=== PATIENT | female | born 1950 | race African-American/Black ===

== ENCOUNTER 2017-08-01 10:33 | Emergency (ER) | payer OTHER ==
[~2017-08-01] VITALS: Ht 157.5 cm; Wt 57.6 kg
[2017-08-01] MEDS ORDERED: TYLENOL EXTRA500 MG PO (11:16)
[2017-08-01] MEDS ORDERED: ARTIFICIAL TEAR15 M2 OPHTHALMIC (11:17)
[2017-08-01] MEDS ORDERED: TUMS PO (11:18)
[2017-08-01] MEDS ORDERED: MEGA BIOTIN10000 MCG PO (11:18)
[2017-08-01] MEDS ORDERED: CARDIZEM CD240 MG PO (11:19)
[2017-08-01] MEDS ORDERED: VITAMIN D3400 UNIT PO (11:19)
[2017-08-01] MEDS ORDERED: VALIUM5 MG PO (11:19)
[2017-08-01] MEDS ORDERED: COLACE 100 MG100 MG PO (11:20)
[2017-08-01] MEDS ORDERED: ENOXAPARIN80 MG/0.1 SUBQ ×2 (11:21)
[2017-08-01] MEDS ORDERED: ERYTHROMYCIN E3.5 G3 OPHTHALMIC (11:22)
[2017-08-01] MEDS ORDERED: FOLIC ACID1 MG PO (11:22)
[2017-08-01] MEDS ORDERED: FEOSOL325 M1 PO (11:22)
[2017-08-01] MEDS ORDERED: HYDRALAZINE 2525 MG PO (11:23)
[2017-08-01] MEDS ORDERED: LASIX 40 MG TAB40 M2 PO (11:23)
[2017-08-01] MEDS ORDERED: DILAUDID 2 MG TA2 MG PO (11:24)
[2017-08-01] MEDS ORDERED: LIDODERM1 EACH TRANSDERM (11:25)
[2017-08-01] MEDS ORDERED: PROBIOTIC1 EAC1 PO (11:25)
[2017-08-01] MEDS ORDERED: LIDOCAINE-PRILO30 GM TOP (11:27)
[2017-08-01] MEDS ORDERED: LOPERAMIDE 2 MG2 M1 PO (11:27)
[2017-08-01] MEDS ORDERED: TOPROL XL25 MG PO (11:28)
[2017-08-01] MEDS ORDERED: ANTIVERT25 MG PO (11:28)
[2017-08-01] MEDS ORDERED: MELATONIN5 M1 PO (11:28)
[2017-08-01] MEDS ORDERED: OCUFLOX5 ML OPHTHALMIC (11:29)
[2017-08-01] MEDS ORDERED: OMEPRAZOLE20 MG PO (11:29)
[2017-08-01] MEDS ORDERED: PREDNISONE 20 M20 MG PO (11:30)
[2017-08-01] MEDS ORDERED: ONDANSETRON HCL4 M2 PO (11:30)
[2017-08-01] MEDS ORDERED: TACROLIMUS0.5 MG PO (11:31)
[2017-08-01] MEDS ORDERED: GAS RELIEF80 MG PO (11:31)
[2017-08-01] MEDS ORDERED: TRAMADOL 50 MG50 MG PO (11:32)
[2017-08-01] MEDS ORDERED: VALGANCICLOVIR450 MG PO (11:32)
[2017-08-01] MEDS ORDERED: EFFEXOR XR37.5 MG PO (11:33)
[2017-08-01] MEDS ORDERED: UNICOMPLEX M TA1 TA1 PO (11:33)
[2017-08-01] MEDS ORDERED: COUMADIN 3 MG TA3 M1 PO ×2 (11:33)
[2017-08-01 12:23] LABS: HEMATOCRIT 29.7 % (37.0-47.0); MCHC 33.7 g/dL (28.0-37.0); MCV 100.8 fL (80.0-100.0); RBC 2.94 mil/uL (4.20-5.00); RDW 19.1 % (10.5-14.5); WBC 10.9 thou/uL (4.0-11.0)
[2017-08-01 12:38] LABS: APTT 34.7 Seconds (24.5-32.8); INR 1.2; PROTIME 12.6 Seconds (9.3-11.4)
[2017-08-01 15:57] VITALS: BP 177/107
== END 2017-08-01 16:22 | disposition home or self-care (01) ==
LOC: ER 10:33
PROVIDERS: Emergency Medicine
DX: R04.0 Epistaxis (principal); I12.9 Hypertensive chronic kidney disease with stage 1 through stage 4 chronic kidney disease, or unspecified chronic kidney disease; N18.9 Chronic kidney disease, unspecified; I48.91 Unspecified atrial fibrillation; E78.00 Pure hypercholesterolemia, unspecified; Z99.2 Dependence on renal dialysis; Z88.0 Allergy status to penicillin; Z88.2 Allergy status to sulfonamides; Z88.5 Allergy status to narcotic agent; Z88.1 Allergy status to other antibiotic agents

== ENCOUNTER 2017-08-02 07:59 | Inpatient (IN) | payer OTHER ==
[~2017-08-02] VITALS: Ht 157.5 cm; Wt 57.6 kg
[~2017-08-02 07:59] MED LIST: ANTIVERT25 MG PO; ARTIFICIAL TEAR15 M2 OPHTHALMIC; CARDIZEM CD240 MG PO; COLACE 100 MG100 MG PO; COUMADIN 3 MG TA3 M1 PO; DILAUDID 2 MG TA2 MG PO; EFFEXOR XR37.5 MG PO; ENOXAPARIN80 MG/0.1 SUBQ; ERYTHROMYCIN E3.5 G3 OPHTHALMIC; FEOSOL325 M1 PO; FOLIC ACID1 MG PO; GAS RELIEF80 MG PO; HYDRALAZINE 2525 MG PO; LASIX 40 MG TAB40 M2 PO; LIDOCAINE-PRILO30 GM TOP; LIDODERM1 EACH TRANSDERM; LOPERAMIDE 2 MG2 M1 PO; MEGA BIOTIN10000 MCG PO; MELATONIN5 M1 PO; OCUFLOX5 ML OPHTHALMIC; OMEPRAZOLE20 MG PO; ONDANSETRON HCL4 M2 PO; PREDNISONE 20 M20 MG PO; PROBIOTIC1 EAC1 PO; TACROLIMUS0.5 MG PO; TOPROL XL25 MG PO; TRAMADOL 50 MG50 MG PO; TUMS PO; TYLENOL EXTRA500 MG PO; UNICOMPLEX M TA1 TA1 PO; VALGANCICLOVIR450 MG PO; VALIUM5 MG PO; VITAMIN D3400 UNIT PO
[2017-08-02 08:07] VITALS: BP 185/93
[2017-08-02 09:12] LABS: HEMATOCRIT 26.9 % (37.0-47.0); HEMOGLOBIN 8.9 gm/dL (12.0-15.0); MCH 33.7 pg (26.0-34.0); MCHC 33.1 g/dL (28.0-37.0); MCV 101.7 fL (80.0-100.0); RBC 2.64 mil/uL (4.20-5.00); RDW 18.6 % (10.5-14.5); WBC 18.7 thou/uL (4.0-11.0)
[2017-08-02 09:22] LABS: CALCIUM 9.3 mg/dL (8.5-10.1); CREATININE 5.1 mg/dL (0.6-1.0)
[2017-08-02 09:25] LABS: APTT 27.3 Seconds (24.5-32.8); INR 1.2; PROTIME 12.4 Seconds (9.3-11.4)
[2017-08-02 11:33] VITALS: BP 184/103
[2017-08-02 13:25] VITALS: BP 154/85
[2017-08-02 20:00] VITALS: BP 159/88
[2017-08-02 21:56] VITALS: BP 190/102
== END 2017-08-02 22:30 | disposition left against medical advice (07) | DRG 151 ==
LOC: ER 07:59 → EROBS 10:13 → 4E 13:26
PROVIDERS: Emergency Medicine
PROC: 2Y41X5Z Packing of Nasal Region using Packing Material (ICD-10-PCS; principal; 2017-08-02)
DX: R04.0 Epistaxis (principal); D62 Acute posthemorrhagic anemia; D68.61 Antiphospholipid syndrome; Z94.0 Kidney transplant status; Q89.8 Other specified congenital malformations; I48.91 Unspecified atrial fibrillation; N18.9 Chronic kidney disease, unspecified; H35.30 Unspecified macular degeneration; E78.00 Pure hypercholesterolemia, unspecified; Z53.21 Procedure and treatment not carried out due to patient leaving prior to being seen by health care provider; D72.829 Elevated white blood cell count, unspecified; M81.0 Age-related osteoporosis without current pathological fracture; I12.9 Hypertensive chronic kidney disease with stage 1 through stage 4 chronic kidney disease, or unspecified chronic kidney disease; M47.9 Spondylosis, unspecified; Z86.718 Personal history of other venous thrombosis and embolism; Z88.0 Allergy status to penicillin; Z88.2 Allergy status to sulfonamides; Z88.6 Allergy status to analgesic agent; Z88.1 Allergy status to other antibiotic agents; Z91.041 Radiographic dye allergy status; Z79.899 Other long term (current) drug therapy; Z79.01 Long term (current) use of anticoagulants
CPT/HCPCS: 10183

== ENCOUNTER 2018-01-13 03:14 | Inpatient (IN) | payer OTHER ==
[~2018-01-13] VITALS: Ht 157.5 cm; Wt 56.7 kg
[2018-01-13] VITALS (9 sets, daily range): BP systolic 131–169; BP diastolic 62–89
--- NOTE | ~2018-01-13 | EKG ---
[address] [place] [address] ELECTROCARDIOGRAM REPORT Name: ILEANA ARDON Room #: 201-P [facility] IN M.R.#: [id number] Admission: 01/13/18 Attend Phys: Rusty Adkins MD Discharge: Date of : 50 Report #: [id number] THIS REPORT FOR: //name// [facility] ED Test Date: 2018-01-13 Test Time: 03:18:29 Pat Name: ILEANA ARDON Department: Room: [facility] Gender: F Check Services Clerk: SUSU : 1950 Requested By: Artem Mccain Order Number: [id number] MD: Samir Johnson Measurements Intervals [place] Rate: 89 P: 80 MN: 184 QRS: 9 QRSD: 88 T: 62 QT: 379 QTc: 462 Interpretive Statements Sinus rhythm Poor R wave progression No previous ECG available for comparison Electronically Signed On 01-13-2018 8:48:21 CDT by Samir Johnson [email or web address] <ELECTRONICALLY SIGNED> By: Samir Johnson MD, [facility] 01/13/18 0848 0318 0318 Samir Johnson MD, FACC /EPI
--- NOTE | ~2018-01-13 | 2DMMODE ---
[facility] [address] [place] [address] 2 D/M-MODE ECHOCARDIOGRAM Name: ILEANA ARDON Room #: 201-P [facility] IN ..#: [id number] Admission: 01/13/18 Attend Phys: Rusty Adkins, Discharge: Date of : 50 Date of Service: 01/14/18 1250 Report #: [id number] THIS REPORT FOR: //name// APPROVED REPORT Study performed: 01/14/2018 10:27:26 EXAM: Comprehensive 2D, Doppler, and color-flow Echocardiogram Patient Location: Bedside Room #: 201 Status: routine BSA: 1.64 HR: 93 bpm BP: 147/71 mmHg Rhythm: NSR Other Information Study Quality: Adequate Indications Pulmonary edema. Hx: CHF, Afib, HTN, HLP, ESRD. 2D Dimensions RVDd: 32.56 mm LVEF(%): 51.65 (>50%) IVSd: 14.12 (7-11mm) LVOT Diam: 19.87 (18-24mm) LVDd: 43.24 mm PWd: 13.61 (7-11mm) Ascending Ao: 37.72 (22-36mm) LVDs: 31.91 (25-40mm) Aortic Root: 32.56 mm Buenrostro's LVEF: 51.65 % Volumes Left Atrial Volume (Systole) Single Plane 4CH: 49.92 mL Single Plane 2CH: 59.53 mL LA ESV Index: 35.00 mL/m2 Aortic Valve AoV Peak Arnel.: 1.70 m/s AO Peak Gr.: 11.60 mmHg LVOT Max P.52 mmHg LVOT Max V: 1.18 m/s ROLAN Vmax: 2.14 cm2 AI Vmax: 4.57 m/s AI Beauregard: 3.27 m/s2 AI PHT: 405.70 ms [facility] [place] [address] 2 D/M-MODE ECHOCARDIOGRAM Name: ILEANA ARDON Room #: 201-P [facility] IN ..#: [id number] Admission: 01/13/18 Attend Phys: Rusty Adkins, Discharge: Date of : 50 Date of Service: 01/14/18 1250 Report #: [id number] Mitral Valve IVRT: 110.73 ms Pulmonary Valve PV Peak Arnel.: 1.06 m/s PV Peak Gr.: 4.47 mmHg Pulmonary Vein P Vein S: 0.37 m/s P Vein D: 0.55 m/s P Vein S/D Ratio: 0.67 Tricuspid Valve TR Peak Arnel.: 2.21 m/s RAP Estimate: 5.00 mmHg TR Peak Gr.: 19.59 mmHg PA Pressure: 25.00 mmHg Left Ventricle The left ventricle is normal size. There is normal LV segmental wall motion. Mild to moderate concentric left ventricular hypertrophy. Left ventricular systolic function is normal. LVEF is 55%. Moderate diastolic dysfunction is present (pseudonormal filling). Right Ventricle The right ventricle is normal size. The right ventricular systolic function is normal. Atria Left atrium is mildly dilated. The right atrium size is normal. Aortic Valve Aortic valve is calcified. Mild to moderate aortic regurgitation. There is no aortic valvular stenosis. Mitral Valve Mitral valve leaflets are thickened. Heavily calcified annulus. Moderate mitral regurgitation. No evidence of mitral valve stenosis. Tricuspid Valve The tricuspid valve is normal in structure. Trace tricuspid regurgitation. Estimated PAP is 25mmHg. Pulmonic Valve Pulmonic valve is grossly normal in structure. Trace pulmonic regurgitation. [facility] [address] [place] [address] 2 D/M-MODE ECHOCARDIOGRAM Name: ARDONILEANA Room #: 201-P [facility] IN ..#: [id number] Admission: 01/13/18 Attend Phys: Rusty Adkins, Discharge: Date of : 50 Date of Service: 01/14/18 1250 Report #: [id number] Great Vessels The aortic root is normal in size. Ascending aorta measures at the upper limits of normal. IVC is normal in size and collapses >50% with inspiration. Pericardium There is no pericardial effusion. Right and left pleural effusions noted. <Conclusion> The left ventricle is normal size. Mild to moderate concentric left ventricular hypertrophy. Left ventricular systolic function is normal. Moderate diastolic dysfunction is present (pseudonormal filling). The right ventricle is normal size. Left atrium is mildly dilated. Mild to moderate aortic regurgitation. Mitral valve leaflets are thickened. Heavily calcified annulus. Moderate mitral regurgitation. Trace tricuspid regurgitation. Estimated PAP is 25mmHg. There is no pericardial effusion. <ELECTRONICALLY SIGNED> By: William Lara MD 01/14/180 49 49 William Lara MD /INF
--- NOTE | ~2018-01-13 | HC ---
[facility] [place] [address] CONSULTATION Name: ILEANA ARDON Palmira Room #: 201-P [facility] IN .R.#: [id number] Admission: 01/13/18 Attend Phys: Rusty Adkins MD Discharge: Date of : 50 Report #: [id number] THIS REPORT FOR: //name// CC: Rusty Sunshine REASON FOR CONSULTATION: End-stage renal disease. REASON FOR PRESENTATION: Shortness of breath. 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 The details of the history were obtained from the patient's . He tells me that back in 2009, she was diagnosed to have end-stage renal disease while in [place]. She had history of lupus, DVTs in the past. She was diagnosed to have antiphospholipid and was maintained on chronic anticoagulation. She remained on dialysis up until 2012, she moved to [place]. She had a kidney transplant in 2014; however, this seems to be failing. She is currently maintained on hemodialysis every Saturday, Saturday and Saturday. She sees Dr. Singh and goes to her [facility]. She presented with shortness of breath and was found to be in hypertensive urgency with a blood pressure reading of 160/89, pulmonary edema. She was admitted for further evaluation and management. I am being consulted to manage her end-stage renal disease related issues. Most of the patient's hospitalizations were at . The tells me that she had been in numerous facilities for numerous issues including hypertensive urgency, pulmonary edema, many complications related to her renal transplantation including a recent CMV virus infection. PAST MEDICAL HISTORY: 1. End-stage renal disease, maintained on hemodialysis. 2. Remote history of peritoneal dialysis. 3. Failed kidney transplant. 4. Retinitis pigmentosa. 5. 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 6. AFib. 7. Anemia of chronic disease. 8. Multiple lung nodules. 9. Osteoporosis. 10. DVT. 11. Lupus. 12. Antiphospholipid syndrome. 13. Issues managing her fluid with the dialysis, chronic hypertension complicated by hypovolemia and hypotension. MEDICATIONS: 1. Warfarin. [address] [address] CONSULTATION Name: DUGLASILEANA N Room #: 201-P [facility]..#: [id number] Admission: 01/13/18 Attend Phys: Rusty Adkins MD Discharge: Date of : 50 Report #: [id number] 2. Trazodone. 3. Metoprolol. 4. Imdur. 5. Amlodipine. 6. Valcyte. 7. Tacrolimus. 8. Prednisone. 9. Meclizine. 10. Furosemide. 11. Diltiazem. 12. Diazepam. 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 No drug or alcohol abuse. ALLERGIES: CIPRO, CODEINE, PENICILLIN, SHELLFISH, SULFA, IRON SUCROSE. REVIEW OF SYSTEMS: GENERAL: Significant for weakness. CARDIOVASCULAR: Significant for shortness of breath. PULMONARY: Shortness of breath and cough. GASTROINTESTINAL: Occasional nausea and abdominal pain. MUSCULOSKELETAL: Occasional back pain. SKIN: No rash or ulcerations. HEMATOLOGICAL: No epistaxis. However, she did have one event of profuse bleeding, for which the patient has profuse epistaxis episode, for which the patient had an embolization of one of her nasal vessels. Also significant for DVTs including a recent left upper extremity and left neck DVT. PHYSICAL EXAMINATION: GENERAL: She is asleep this morning. VITAL SIGNS: Temperature 36.3, blood pressure 148/62. HEAD AND NECK: Right-sided port. Left IJ catheter. CHEST: Crackles bilaterally. CARDIOVASCULAR: No rub. Systolic murmur present. ABDOMEN: Soft, nontender. LOWER EXTREMITIES: No edema. LABORATORY DATA: Reviewed. White blood cell count is 12.8. INR pending. Sodium 127, potassium 5.4. Liver enzymes are within normal. Chest x-ray reviewed, pulmonary edema present. ASSESSMENT, IMPRESSION AND PLAN: 1. End-stage renal disease. 2. Hyponatremia. 3[place] [address] CONSULTATION Name: ILEANA ARDON Palmira Room #: 201-P ADM IN M.R.#: [id number] Admission: 01/13/18 Attend Phys: Rusty Adkins MD Discharge: Date of : 50 Report #: [id number] 4. Hyperkalemia. 5. Pulmonary edema. 6. Failed kidney transplant. 7. Recent cytomegalovirus infection. 8. Atrial fibrillation. 9. 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 10. Antiphospholipid. 11. Recurrent deep venous thrombosis. 12. Retinitis pigmentosa. 13. Hearing loss. 14. Recurrent deep venous thrombosis. 15. This is a very complicated patient. I will aim for the usual hemodialysis with aggressive ultrafiltration given her pulmonary edema, hyponatremia. She will be dialyzing on a low K bath. 16. Resume all of her chronic outpatient medications. 17. Resume anticoagulation. 18. Blood pressure control. 19. Fluid and salt restrictions. 20. Valacyclovir for her recent cytomegalovirus infection. 21. Usual immunosuppression for her kidney transplant. By: 0942 [id number] Zoya Billingsley MD /nt
[2018-01-13] MEDS ORDERED: NORVASC5 MG PO (03:26)
[2018-01-13] MEDS ORDERED: BIOTIN10000 MC1 PO (03:28)
[2018-01-13] MEDS ORDERED: CALCIUM500 M1 PO (03:28)
[2018-01-13] MEDS ORDERED: IMDUR 30 MG TAB30 M1 PO (03:30)
[2018-01-13 03:32] LABS: ABSOLUTE NEUTROPHILS 11.4 thou/uL (1.4-8.2); BASOPHILS 0.1 % (0.0-2.0); EOSINOPHILS 0.7 % (0.0-3.0); HEMATOCRIT 35.2 % (37.0-47.0); HEMOGLOBIN 11.8 gm/dL (12.0-15.0); LYMPHOCYTES 5.8 % (24.0-44.0); MCH 31.4 pg (26.0-34.0); MCHC 33.4 g/dL (28.0-37.0); MONOCYTES 4.5 % (1.0-8.0); PLATELET COUNT 236 thou/uL (150-400); POLYS 88.9 % (36.0-66.0); RBC 3.75 mil/uL (4.20-5.00); RDW 16.7 % (10.5-14.5); WBC 12.8 thou/uL (4.0-11.0)
[2018-01-13] MEDS ORDERED: TOPROL XL100 MG PO (03:34)
[2018-01-13] MEDS ORDERED: SENNA8.6 MG PO (03:36)
[2018-01-13] MEDS ORDERED: SALINE NASAL SP30 ML INH (03:38)
[2018-01-13] MEDS ORDERED: TRAZODONE HCL50 MG PO (03:39)
[2018-01-13 03:40] LABS: ANION GAP 8 mmol/L (7-16); BUN 57 mg/dL (7-18); CALCIUM 9.3 mg/dL (8.5-10.1); CHLORIDE 94 mmol/L (98-107); CO2 25 mmol/L (21-32); CREATININE 6.6 mg/dL (0.6-1.0); GLUCOSE 169 mg/dL (74-106); POTASSIUM 5.4 mmol/L (3.5-5.1); SODIUM 127 mmol/L (136-145)
[2018-01-13] MEDS ORDERED: NEPHPLEX RX TA1 EACH PO (03:40)
[2018-01-13] MEDS ORDERED: JANTOVEN5 MG PO (03:41)
[2018-01-13 03:49] LABS: ALBUMIN 3.2 g/dL (3.4-5.0); SGOT 34 U/L (15-37); SGPT 39 U/L (30-65); TOTAL BILIRUBIN 0.4 mg/dL (<0.1-1.0); TROPONIN-I <0.06 ng/mL (<0.06)
[2018-01-13 09:46] LABS: INR 3.2; PROTIME 30.4 Seconds (9.3-11.4)
[2018-01-14] VITALS (7 sets, daily range): BP systolic 126–147; BP diastolic 59–73
[2018-01-14 06:41] LABS: ABSOLUTE NEUTROPHILS 8.5 thou/uL (1.4-8.2); BASOPHILS 0.1 % (0.0-2.0); HEMATOCRIT 33.4 % (37.0-47.0); MCH 31.1 pg (26.0-34.0); MCHC 32.9 g/dL (28.0-37.0); MCV 94.7 fL (80.0-100.0); MONOCYTES 0.6 % (1.0-8.0); PLATELET COUNT 186 thou/uL (150-400); POLYS 96.3 % (36.0-66.0); RBC 3.52 mil/uL (4.20-5.00); RDW 16.7 % (10.5-14.5); WBC 8.9 thou/uL (4.0-11.0)
[2018-01-14 07:02] LABS: CALCIUM 8.5 mg/dL (8.5-10.1); MAGNESIUM 2.6 mg/dL (1.8-2.4); POTASSIUM 5.6 mmol/L (3.5-5.1)
[2018-01-14 07:03] LABS: CREATININE 4.7 mg/dL (0.6-1.0)
[2018-01-15 00:06] LABS: HEP B SURFACE Ab(ANTI-HBS Non Reactive (()); HEPATITIS B SURFACE AG Negative (Negative)
[2018-01-15 00:22] VITALS: BP 132/71
[2018-01-15 04:46] LABS: INR 5.4
[2018-01-15 04:47] VITALS: BP 140/79
[2018-01-15 09:49] VITALS: BP 168/98
[2018-01-15 11:47] VITALS: BP 148/85
[2018-01-15 15:25] VITALS: BP 148/85
== END 2018-01-15 16:49 | disposition home or self-care (01) | DRG 871 ==
LOC: ER 03:14 → 2N 04:00 → EROBS 04:00 → 2N 04:49 → ENTRNSPT 01-15 16:37 → 2N 01-15 16:49
PROVIDERS: Emergency Medicine; Hospitalist; Nurse Practitioner
PROC: 5A1D70Z Performance of Urinary Filtration, Intermittent, Less than 6 Hours Per Day (ICD-10-PCS; principal; 2018-01-13)
PROC: 5A1D70Z Performance of Urinary Filtration, Intermittent, Less than 6 Hours Per Day (ICD-10-PCS; 2018-01-14)
PROC: 5A1D70Z Performance of Urinary Filtration, Intermittent, Less than 6 Hours Per Day (ICD-10-PCS; 2018-01-15)
DX: A41.9 Sepsis, unspecified organism (principal); J18.9 Pneumonia, unspecified organism; N18.6 End stage renal disease; J96.01 Acute respiratory failure with hypoxia; I13.2 Hypertensive heart and chronic kidney disease with heart failure and with stage 5 chronic kidney disease, or end stage renal disease; D68.61 Antiphospholipid syndrome; E87.1 Hypo-osmolality and hyponatremia; Z94.0 Kidney transplant status; Q89.8 Other specified congenital malformations; M47.9 Spondylosis, unspecified; E11.22 Type 2 diabetes mellitus with diabetic chronic kidney disease; H91.90 Unspecified hearing loss, unspecified ear; I50.9 Heart failure, unspecified; E87.5 Hyperkalemia; H35.52 Pigmentary retinal dystrophy; I16.0 Hypertensive urgency; E78.00 Pure hypercholesterolemia, unspecified; M81.0 Age-related osteoporosis without current pathological fracture; H35.30 Unspecified macular degeneration; M32.9 Systemic lupus erythematosus, unspecified; E78.5 Hyperlipidemia, unspecified; I48.91 Unspecified atrial fibrillation; Z88.2 Allergy status to sulfonamides; Z91.041 Radiographic dye allergy status; Z88.0 Allergy status to penicillin; Z91.013 Allergy to seafood; Z99.2 Dependence on renal dialysis; Z86.718 Personal history of other venous thrombosis and embolism; Z79.899 Other long term (current) drug therapy; Z79.01 Long term (current) use of anticoagulants; Z88.1 Allergy status to other antibiotic agents; Z88.8 Allergy status to other drugs, medicaments and biological substances
CPT/HCPCS: 10081; 32100

== ENCOUNTER 2018-06-26 16:17 | Inpatient (IN) | payer OTHER ==
[~2018-06-26] VITALS: Ht 157.5 cm; Wt 61.6 kg
--- NOTE | ~2018-06-26 | HC ---
[facility] [place] [address] CONSULTATION Name: ARDONILEANA N Room #: 354-P [facility] IN M.R.#: [id number] Admission: 06/26/18 Attend Phys: Joan Ramirez Discharge: Date of : 50 Report #: [id number] THIS REPORT FOR: //name// CC: NO PCP Oscar Dickson REASON FOR CONSULTATION: End-stage renal disease. REASON FOR PRESENTATION: Shortness of breath. HISTORY OF PRESENT ILLNESS: A well-known patient to me from December 2017. She has end-stage renal disease with history of lupus, antiphospholipid syndrome, DVT and potential Marfan syndrome. She is dialyzing in [place] dialysis unit. She had a kidney transplant back in 2014. She also has retinitis pigmentosa. tells me that she dialyzes every Saturday, Saturday and Saturday with an extra session on Saturday to try to control her blood pressure and her volume. She had sudden surges of her blood pressure yesterday. This was associated with shortness of breath. tends to treat her blood pressure with hydralazine and metoprolol. She was in major pulmonary edema when she presented yesterday and we had to dialyze her emergently. I am being consulted to manage her end-stage renal disease related issues. PAST MEDICAL HISTORY: 1. End-stage renal disease. 2. Lupus. 3. Antiphospholipid syndrome. 4. DVTs. 5. Failed kidney transplant. 6. Retinitis pigmentosa. 7. Atrial fibrillation. 8. Anemia. 9. Lung nodules. 10. Hypertension. MEDICATIONS: 1. Coumadin. 2. Metoprolol. 3. Imdur. 4. Tacrolimus. 5. Prednisone. 6. Furosemide. 7. Hydralazine. 8. Diazepam. SOCIAL HISTORY: Lives with her . No drug or alcohol abuse. ALLERGIES: CIPRO, CODEINE, PENICILLIN, SULFA. [facility] [address] [place] [address] CONSULTATION Name: ILEANA ARDON Room #: 354-P [facility] IN [facility].#: [id number] Admission: 06/26/18 Attend Phys: Joan Ramirez Discharge: Date of : 50 Report #: [id number] REVIEW OF SYSTEMS: GENERAL: No fever or chills. CARDIOVASCULAR: No chest pain or palpitation. PULMONARY: No cough or hemoptysis; however, significant shortness of breath. GASTROINTESTINAL: No nausea or vomiting. GENITOURINARY: She has a Dos Santos catheter. PHYSICAL EXAMINATION: GENERAL: She is alert, oriented, in no apparent distress. VITAL SIGNS: Temperature 36.7, blood pressure is 159/95. HEAD AND NECK: No jugular venous distention, no bruit, no thyromegaly. CHEST: Crackles bilaterally. CARDIOVASCULAR: No rub detected. ABDOMEN: Soft, nontender. LOWER EXTREMITIES: No edema. LABORATORY VALUES: Reviewed. Sodium 129, potassium 5.3, BUN 42, creatinine 5.4. Chest x-ray reviewed, consistent with pulmonary edema. Abdominal ultrasound reviewed, no acute abnormality. ASSESSMENT, IMPRESSION AND PLAN: 1. Acute pulmonary edema. 2. End-stage renal disease. 3. Complicated past medical history with history of deep venous thrombosis, phospholipid syndrome, lupus, potential Marfan syndrome. 4. Dialysis was done yesterday. Another session will be done today. I had 30 minutes discussion with the patient regarding the management of hypertension in the dialysis people, fluid and salt restriction. She had major issues with hyponatremia and hyperkalemia suggesting noncompliance with fluid and salt restriction. Unfortunately, the patient's tends to manage her the way he would like. This is complicating her medical care. 5. We will defer the management of her deep venous thrombosis, phospholipids to the admitting team. By: 0911 [id number] Zoya Billingsley MD /nt
[~2018-06-26 16:17] MED LIST changes: +BIOTIN10000 MC1 PO; +CALCIUM500 M1 PO; +IMDUR 30 MG TAB30 M1 PO; +JANTOVEN5 MG PO; +NEPHPLEX RX TA1 EACH PO; +NORVASC5 MG PO; +SALINE NASAL SP30 ML INH; +SENNA8.6 MG PO; +TOPROL XL100 MG PO; +TRAZODONE HCL50 MG PO
[2018-06-26 16:19] VITALS: BP 168/82
--- NOTE | 2018-06-26 16:39 | NUR ---
RT AT BEDSIDE TO OBTAIN ABG
[2018-06-26 16:45] LABS: ABSOLUTE NEUTROPHILS 11.1 thou/uL (1.4-8.2); BASOPHILS 0.3 % (0.0-2.0); EOSINOPHILS 0.1 % (0.0-3.0); HEMATOCRIT 31.2 % (37.0-47.0); HEMOGLOBIN 10.2 gm/dL (12.0-15.0); LYMPHOCYTES 7.1 % (24.0-44.0); MCH 32.4 pg (26.0-34.0); MCHC 32.6 g/dL (28.0-37.0); MCV 99.4 fL (80.0-100.0); MONOCYTES 4.2 % (1.0-8.0); PLATELET COUNT 339 thou/uL (150-400); POLYS 88.3 % (36.0-66.0); RBC 3.14 mil/uL (4.20-5.00); RDW 14.8 % (10.5-14.5); WBC 12.6 thou/uL (4.0-11.0)
[2018-06-26 16:47] LABS: BE(vivo) -0.3 mmol/L (-2 to +3); HCO3 24.5 mmol/L (22.0-26.0); PCO2 40.2 mmHg (35.0-45.0); PO2 89.2 mmHg (80.0-100.0); pH 7.402 (7.360-7.450); sO2 96.8 % (92.0-98.0)
--- NOTE | 2018-06-26 16:48 | NUR ---
PER HE WANTS TO WAIT ON LASIX UNTIL HE SPEAKS TO PROVIDER
[2018-06-26 16:56] LABS: ANION GAP 10 mmol/L (7-16); BUN 42 mg/dL (7-18); CALCIUM 8.8 mg/dL (8.5-10.1); CHLORIDE 93 mmol/L (98-107); CO2 26 mmol/L (21-32); CREATININE 5.4 mg/dL (0.6-1.0); GLUCOSE 239 mg/dL (74-106); POTASSIUM 5.3 mmol/L (3.5-5.1); SODIUM 129 mmol/L (136-145)
[2018-06-26 16:58] LABS: INR 3.3; PROTIME 34.1 Seconds (9.3-11.4)
[2018-06-26 17:05] LABS: ALBUMIN 2.7 g/dL (3.4-5.0); MAGNESIUM 2.5 mg/dL (1.8-2.4); SGOT 25 U/L (15-37); SGPT 23 U/L (30-65); TOTAL BILIRUBIN 0.5 mg/dL (<0.1-1.0); TOTAL PROTEIN 7.1 g/dL (6.4-8.2); TROPONIN-I <0.06 ng/mL (<0.06)
[2018-06-26] MEDS ORDERED: SM VITAMIN B C0.4 MG PO (17:19)
[2018-06-26] MEDS ORDERED: DIPHENHYDRAMINE25 M3 PO (17:21)
[2018-06-26 17:59] LABS: URINE CLARITY CLOUDY; URINE COLOR GREENISH; URINE GLUCOSE-RANDOM* NEGATIVE (Negative); URINE PROTEIN (DIPSTICK) 2+ (Negative); URINE SPECIFIC GRAVITY 1.015 (1.005-1.035)
[2018-06-26 18:00] LABS: URINE BILIRUBIN NEGATIVE (Negative); URINE BLOOD 1+ (Negative); URINE KETONES NEGATIVE (Negative); URINE LEUKOCYTES-REFLEX 3+ (Negative); URINE NITRITE-REFLEX POSITIVE (Negative); URINE UROBILINOGEN 0.2 E.U./dl (0.2-1.0)
[2018-06-26 18:05] LABS: SQUAMOUS 0-3 Few /LPF (0-3); URINE RBC 3-10 Few /HPF (0-2); URINE WBC-REFLEX >25 Many /HPF (0-5)
[2018-06-26 18:06] LABS: BACTERIA-REFLEX >30 Many /HPF (None Seen); CASTS None Seen /LPF (None Seen); CRYSTALS None Seen /LPF (None Seen)
[2018-06-26 18:19] VITALS: BP 141/72
[2018-06-26 19:17] VITALS: BP 157/83
[2018-06-26] MEDS ORDERED: NORVASC5 MG PO (22:48)
[2018-06-26] MEDS ORDERED: ROLAIDS CHEWAB1 EAC1 PO (22:52)
[2018-06-26] MEDS ORDERED: COUMADIN 2 MG TA2 M1 PO (23:00)
--- NOTE | 2018-06-26 23:34 | EKG ---
[address] [address] ELECTROCARDIOGRAM REPORT Name: ILEANA ARDON Room #: 354-P ADM IN M.R.#: [id number] Admission: 06/26/18 Attend Phys: Joan Ramirez Discharge: Date of : 50 Report #: [id number] THIS REPORT FOR: //name// [facility] ED Test Date: 2018-06-26 Test Time: 16:33:31 Pat Name: ILEANA ARDON Department: Room: 354 Gender: F Barrel Planer: : 1950 Requested By: Rajan Christianson Order Number: [id number] MD: Candelario Mcallister Measurements Intervals [place] Rate: 91 P: 34 NV: 166 QRS: -19 QRSD: 82 T: 58 QT: 380 QTc: 468 Interpretive Statements Sinus rhythm Borderline left axis deviation Anteroseptal infarct, age indeterminate Compared to ECG 01/13/2018 03:18:29 Myocardial infarct finding now present Poor R-wave progression no longer present Electronically Signed On 06-26-2018 23:34:15 WATER METER MECHANIC by Candelario Mcallister [email or web address] <ELECTRONICALLY SIGNED> By: Candelario Mcallister MD 06/26/18 2334 1633 1633 Candelario Mcallister MD /EPI
[2018-06-26 23:40] VITALS: BP 133/78
[2018-06-27 00:12] VITALS: BP 102/54
[2018-06-27 04:43] VITALS: BP 137/85
--- NOTE | 2018-06-27 05:58 | NUR ---
PT MAKING PROGRESS TOWARDS GOALS. ON BIPAP OVERNIGHT. PUT ON O2 4L PER NC FOR APPROXIMATELY 15 MINUTES LAST NIGHT IN ORDER TO TAKE SOME PO MEDICATIONS. PT DID STATE THAT SHE FELT SHE WAS BREATHING "MUCH BETTER" THAN COMPARED TO PRIOR TO COMING TO THE HOSPITAL. 02 SATS 98-99% AND DID NOT CHANGE WHILE ON NASAL CANNULA.
[2018-06-27 07:41] VITALS: BP 159/95
--- NOTE | 2018-06-27 10:53 | NUR ---
INITIAL ASSESSMENT: Pt evaluated for d/c planning needs. Reviewed chart and spoke with nurse, pt and spouse. Pt lives in house with spouse and needed assistance with ADL's. Pt is able to walk some at home and is able to transfer. Pt has dialysis at [facility]. Spouse transports pt. Pt and spouse plan on pt returning home on d/c from hospital. Pt has walker and w/c at home and has not had home health in the past. Will remain available to assist as needed.
--- NOTE | 2018-06-27 11:16 | NUR ---
ASSUMED PATIENT CARE AT 0715. A&OX2-4. VERY DROWSY. BIPAP OVERNIGHT AND SWITCHED TO NC THIS MORNING. TOLERATING NC WITH SATS IN THE 90'S. DIALYSIS TODAY. DR. BUSCH DISCUSSED PATIENT BEING FLUID OVERLOADED AT LENGTH WITH PATIENTS SPOUSE. SLOWLY WORKING TOWARD DC GOALS.
[2018-06-27 14:07] LABS: HEP B SURFACE Ab(ANTI-HBS Non Reactive (()); HEPATITIS B SURFACE AG Negative (Negative)
[2018-06-27 16:24] VITALS: BP 109/48
[2018-06-27 19:18] VITALS: BP 98/57
[2018-06-27 20:00] VITALS: BP 95/60
--- NOTE | 2018-06-28 04:08 | NUR ---
ASSUMED CARE OF PT AT 1900. PT A&Ox3. SR ON TELE IN 90s. SOFT BPs W/ SBP RUNNING 95-110. PT'S AT BEDSIDE WAS ANXIOUS AND AGITATED, WANTING ALL PHYSICIANS TO BE NOTIFIED IMMEDIATELY. NOTIFIED STAGE RIGGER AND EXPLAINED TO , BP COULD BE LOWER D/T DIALYSIS SHE HAD TODAY AND WE WOULD CONTINUE TO MONITOR IT CLOSELY. HR AND MAP WERE WNL. DIFFICULT TO ASSESS PT AND PROVIDE CARE D/T INVOLVEMENT. PLACED PT ON BP MONITOR W/ BP CHECKS Q 30 MINUTES. STATED HOURS LATER THAT IT DID MAKE HIM FEEL BETTER AND HE SHOULD HAVE JUST ASKED FOR THAT. REQUESTED TYLENOL FOR PAIN, NASAL SPRAY, MELATONIN, TUMS, XANAX, ALL PROVIDED W/ PARTIAL RELIEF. PT STATED SHE JUST WANTS TO GO HOME AND HAVE A BM. ASSISTED TO BR, VERY WEAK, FLATUS ONLY, NO BM AND HAS LOVING CATH. NO PROGRESS THIS SHIFT. SLOW PROGRESSION TOWARDS POC GOALS. WILL CONTINUE TO PROVIDE CARE AND MONITOR.
[2018-06-28 04:22] VITALS: BP 115/64
[2018-06-28 05:39] LABS: HEMATOCRIT 33.8 % (37.0-47.0); HEMOGLOBIN 10.7 gm/dL (12.0-15.0); MCH 31.4 pg (26.0-34.0); MCHC 31.7 g/dL (28.0-37.0); MCV 99.2 fL (80.0-100.0); RBC 3.41 mil/uL (4.20-5.00); RDW 15.2 % (10.5-14.5); WBC 12.9 thou/uL (4.0-11.0)
[2018-06-28 05:49] LABS: CALCIUM 8.6 mg/dL (8.5-10.1); POTASSIUM 3.9 mmol/L (3.5-5.1)
[2018-06-28 05:50] LABS: PROTIME 56.3 Seconds (9.3-11.4)
[2018-06-28 05:53] LABS: INR 5.5
[2018-06-28 05:57] LABS: CREATININE 4.1 mg/dL (0.6-1.0)
[2018-06-28 07:30] VITALS: BP 117/59
[2018-06-28 08:02] VITALS: BP 122/59
[2018-06-28 12:18] VITALS: BP 111/56
[2018-06-28 16:00] VITALS: BP 109/68
--- NOTE | 2018-06-28 16:09 | NUR ---
Assumed care of Pt at 0700. Pt AOX4 in no acute distress. family at bedside, very concerned with patients blood pressure. some bp meds held by physician. bp checked routinely - WNL. maintains spo2 > 96% on room air. CXR showing improvement - no need for dialysis per physician. sinus on telemetry. good progress toward poc goals. no other concerns voiced by patient at this time.
[2018-06-28 19:35] VITALS: BP 105/58
[2018-06-29 04:10] VITALS: BP 148/84
[2018-06-29 05:59] LABS: HEMATOCRIT 30.9 % (37.0-47.0); MCH 31.6 pg (26.0-34.0); MCHC 32.5 g/dL (28.0-37.0); MCV 97.3 fL (80.0-100.0); RBC 3.17 mil/uL (4.20-5.00); RDW 15.1 % (10.5-14.5); WBC 8.7 thou/uL (4.0-11.0)
[2018-06-29 06:10] LABS: PROTIME 62.6 Seconds (9.3-11.4)
[2018-06-29 06:11] LABS: INR 6.1
--- NOTE | 2018-06-29 06:16 | NUR ---
C/O left eye pain , tylenol and eye ointment given as ordered with some relief. She slept well during the night with at bedside. Tolerating room air well with O2 sat in the upper 90's. Bed alarm on. Making progress towards care plan goals.
[2018-06-29 06:17] LABS: CALCIUM 7.9 mg/dL (8.5-10.1); CREATININE 6.8 mg/dL (0.6-1.0); POTASSIUM 3.9 mmol/L (3.5-5.1); TOTAL BILIRUBIN 0.4 mg/dL (<0.1-1.0); TOTAL PROTEIN 6.6 g/dL (6.4-8.2)
--- NOTE | 2018-06-29 06:29 | NUR ---
Critical INR of 6.1 reported to Marilee Castro. Monitor for bleeding and PT/INR in am.
[2018-06-29 07:37] VITALS: BP 126/74
[2018-06-29 11:27] VITALS: BP 108/55
[2018-06-29 16:29] VITALS: BP 108/65
[2018-06-29 19:45] VITALS: BP 128/70
--- NOTE | 2018-06-29 19:55 | NUR ---
SPOKE AT LENGTH WITH SPOUSE AND PATIENT REGARDING GETTING OUT OF BED WITHOUT STAFF..SPOUSE REPORTS HE CARES FOR HER AT HOME AND SHE OFTEN HAS TREMORS AND FALLS BACK WEIGHT...OBTIANED PT/OT CONSULT AND WAITED TO GET PATIENT OUT OF BED UNTIL EVALUATED...
[2018-06-30 06:30] VITALS: BP 127/64
--- NOTE | 2018-06-30 06:41 | NUR ---
Pt. c/o headache , BP check and it's WNL at HS . Tylenol given with good relief. She slept fair during the night with at bedside. Up with assist to bathroom and had bm but did not void. Scheduled for dialysis today. No signs of bleeding. Making progress towards care plan goals.
[2018-06-30 06:50] LABS: HEMATOCRIT 28.8 % (37.0-47.0); HEMOGLOBIN 9.7 gm/dL (12.0-15.0); MCH 32.3 pg (26.0-34.0); MCHC 33.8 g/dL (28.0-37.0); MCV 95.6 fL (80.0-100.0); RBC 3.01 mil/uL (4.20-5.00); RDW 15.5 % (10.5-14.5); WBC 10.2 thou/uL (4.0-11.0)
[2018-06-30 07:05] LABS: INR 4.9; PROTIME 50.4 Seconds (9.3-11.4)
[2018-06-30 08:11] VITALS: BP 135/64
[2018-06-30 12:07] VITALS: BP 122/62
[2018-06-30 14:53] VITALS: BP 121/64
[2018-06-30 15:41] VITALS: BP 121/64
--- NOTE | 2018-06-30 16:38 | NUR ---
DISCHARGE NOTE: SW reviewed chart and spoke with nursing and attending physician. Pt will be ready for discharge later today after dialysis. SW faxed clinical info and discharge summary to [facility] dialysis clinic. Awaiting for final discharge orders at this time. Pt denies having any SW discharge needs. Pt's family will provide transportation home. Finalized discharge orders/summary will be faxed to [facility] tomorrow when available. SW is following to finalize discharge.
--- NOTE | 2018-06-30 17:36 | NUR ---
PATIENT WILL BE DICHARGED POST DIALYSIS. FAMILY AGREE THEY WILL WANT TO TAKE PATIENT HOME THEN. PATIENT HAS RESTED IN BED ALL DAY. SHE IS NOW HAVING DIALYSIS IN ROOM. PATIENT DOES NOT SEEM TO BE IN PAIN AT THIS TIME. DID STATE HE HAS A HEADACHE AND TYLENOL ADMINISTERED. WILL CONT WITH PLAN OF CARE.
[2018-06-30 18:26] VITALS: BP 121/64
--- NOTE | 2018-07-01 10:22 | NUR ---
dp sent dc papers and summary to [facility], dp spoke to Abigail at [facility] to confirm they received paperwork.
== END 2018-06-30 20:30 | disposition home or self-care (01) | DRG 189 ==
LOC: ER 16:17 → 3W 17:22 → EROBS 17:22 → 3W 18:31
PROVIDERS: Emergency Medicine; Hospitalist; Internal Medicine; ADMIT Family Medicine
PROC: 5A09357 Assistance with Respiratory Ventilation, Less than 24 Consecutive Hours, Continuous Positive Airway Pressure (ICD-10-PCS; principal; 2018-06-26)
PROC: 5A1D70Z Performance of Urinary Filtration, Intermittent, Less than 6 Hours Per Day (ICD-10-PCS; principal; 2018-06-26)
PROC: 5A09357 Assistance with Respiratory Ventilation, Less than 24 Consecutive Hours, Continuous Positive Airway Pressure (ICD-10-PCS; 2018-06-27)
PROC: 5A1D70Z Performance of Urinary Filtration, Intermittent, Less than 6 Hours Per Day (ICD-10-PCS; 2018-06-27)
PROC: 5A09357 Assistance with Respiratory Ventilation, Less than 24 Consecutive Hours, Continuous Positive Airway Pressure (ICD-10-PCS; 2018-06-28)
PROC: 5A1D70Z Performance of Urinary Filtration, Intermittent, Less than 6 Hours Per Day (ICD-10-PCS; 2018-06-30)
DX: J96.01 Acute respiratory failure with hypoxia (principal); N18.6 End stage renal disease; J81.0 Acute pulmonary edema; D68.61 Antiphospholipid syndrome; E87.1 Hypo-osmolality and hyponatremia; N39.0 Urinary tract infection, site not specified; Z94.0 Kidney transplant status; Q89.8 Other specified congenital malformations; I13.2 Hypertensive heart and chronic kidney disease with heart failure and with stage 5 chronic kidney disease, or end stage renal disease; I50.9 Heart failure, unspecified; I48.91 Unspecified atrial fibrillation; E78.00 Pure hypercholesterolemia, unspecified; M81.0 Age-related osteoporosis without current pathological fracture; M47.899 Other spondylosis, site unspecified; E87.5 Hyperkalemia; E11.65 Type 2 diabetes mellitus with hyperglycemia; M10.9 Gout, unspecified; E78.5 Hyperlipidemia, unspecified; I25.10 Atherosclerotic heart disease of native coronary artery without angina pectoris; E21.3 Hyperparathyroidism, unspecified; H35.30 Unspecified macular degeneration; G89.29 Other chronic pain; F41.9 Anxiety disorder, unspecified; M19.90 Unspecified osteoarthritis, unspecified site; M62.84 Sarcopenia; R29.6 Repeated falls; K21.9 Gastro-esophageal reflux disease without esophagitis; E11.22 Type 2 diabetes mellitus with diabetic chronic kidney disease; D63.8 Anemia in other chronic diseases classified elsewhere; D72.829 Elevated white blood cell count, unspecified; E87.70 Fluid overload, unspecified; Z79.899 Other long term (current) drug therapy; Z79.52 Long term (current) use of systemic steroids; Z86.718 Personal history of other venous thrombosis and embolism; Z88.2 Allergy status to sulfonamides; Z88.8 Allergy status to other drugs, medicaments and biological substances; Z88.1 Allergy status to other antibiotic agents; Z91.041 Radiographic dye allergy status; Z91.013 Allergy to seafood; Z79.01 Long term (current) use of anticoagulants
CPT/HCPCS: 10879; 32100

== ENCOUNTER 2018-07-30 06:09 | Inpatient (IN) | payer OTHER ==
[2018-07-30] VITALS (38 sets, daily range): BP systolic 66–178; BP diastolic 29–96
[~2018-07-30] VITALS: Ht 152.4 cm; Wt 71.5 kg
--- NOTE | ~2018-07-30 | HC ---
[facility] [place] [address] CONSULTATION Name: ILEANA ARDON Palmira Room #: 239-P [facility] IN M.R.#: [id number] Admission: 07/30/18 Attend Phys: Alexys Nova MD Discharge: Date of : 50 Report #: [id number] THIS REPORT FOR: //name// CC: Alexys Sunshine DATE OF SERVICE: 07/30/2018 REASON FOR CONSULTATION: I was asked to evaluate concerning profound shock with out of hospital cardiac arrest and concern for infection. HISTORY OF PRESENT ILLNESS: The patient was a 68-year-old with end-stage renal disease, failed kidney transplant, on immunosuppression with history of paroxysmal atrial fibrillation, antiphospholipid antibody syndrome, presents after out of hospital cardiac arrest. History was gleaned from review of the medical record as well as discussion with the patient's at the bedside. The patient's states that over the last several months, she has had abdominal distention and discomfort. She was having episodes of shortness of breath, although no fever, chills or sweats. She has had intermittent cough with no sputum production. This morning, she awoke and was noted to have elevated blood pressure over 200 systolic. The patient was given her antihypertensive therapy. She went back to sleep only to awaken again with upper abdominal and chest discomfort. She tried to go to the bathroom, but became more lightheaded and on return to the bed she passed out. The patient was given CPR by her until EMS arrived. She continued resuscitative measures in the field. She was intubated. She was given epinephrine. On presentation to the Emergency Room, converted to normal sinus rhythm, remained profoundly hypotensive and is now on 3 pressors. She is intubated on FiO2 of 70%. She was unresponsive. REVIEW OF SYSTEMS: The patient's denies any history of rash or decubitus. She has had no complaints of headache or seizure activity. No stroke symptoms. Has had no pleuritic chest pain or hemoptysis. After NG tube was placed, there was coffee-ground fluid suctioned from her gastric cavity. She had minimal tracheal secretions. She has a longstanding right chest Port-A-Cath and a left IJ dialysis catheter. She dialyzes 3 days a week. She has had no significant urine output as her baseline. There has been no diarrhea. No mood or psychiatric issues. She does have hyperparathyroidism. REVIEW OF SYSTEMS: Ten point review of systems is otherwise negative. ALLERGIES: IODINE, PENICILLIN, SULFA, CIPRO, CODEINE and IRON. MEDICATIONS: As noted on AUG, now on vancomycin and meropenem. PAST MEDICAL HISTORY: End-stage renal disease, failed kidney transplant, [address] [address] CONSULTATION Name: ILEANA ARDON Room #: 239-P [facility] IN M.R.#: [id number] Admission: 07/30/18 Attend Phys: Alexys Nova MD Discharge: Date of : 50 Report #: [id number] hyperparathyroidism, paroxysmal atrial fibrillation, hypertension, previous DVT, Stickler syndrome, ulnar neuropathy. FAMILY HISTORY: Noncontributory. SOCIAL HISTORY: Nonsmoker, no significant alcohol intake. Lives with her . PHYSICAL EXAMINATION: GENERAL: She was comatose. HEENT: Eyes were open. Pupils were not responsive to light. Conjunctival injection. Orally intubated. Mouth without lesion. NECK: Supple. LUNGS: Coarse breath sounds bilaterally. HEART: Regular, without murmur, gallop or rub. ABDOMEN: Distended. No appreciable masses or hepatosplenomegaly. GENITOURINARY: External genitalia without lesion with indwelling Dos Santos catheter. RECTAL: Not performed. EXTREMITIES: She had peripheral cyanosis. No peripheral edema. SKIN: Without rash or decubitus. No palpable adenopathy. Unable to assess. MOOD: The patient was not responsive to painful stimuli. VITAL SIGNS: Pulse was 97, blood pressure 99/53 on multiple vasopressors. CHEST: Right Port-A-Cath site was unremarkable. Left chest, tunneled dialysis catheter site was unremarkable with no drainage or erythema. She had intraosseous IV in the left pretibial leg. LABORATORY STUDIES: ABGs on 70% FiO2 obtained at 10:25 this morning, pO2 of 108, pCO2 of 44, pH 7.15, lactate 12, bicarbonate of 15. Procalcitonin 1.8. Urinalysis, pyuria and bacteriuria. BNP greater than 70,000. INR 1.5, fibrinogen 294. Phosphorus 9.4, magnesium 2.6, calcium 11.8. Troponin 0.11. Hemoglobin 8.7, white count 21.4, platelet count 242,000. Creatinine 5.9. Chest x-ray, bilateral perihilar infiltrates suggestive of edema, basilar atelectasis, retrocardiac infiltrate. IMPRESSION: 1. Profound shock with multisystem failure, falling out of hospital cardiac arrest. Concerned about upper GI bleed versus sepsis as cause. She does have underlying vascular disease as well. 2. Immunosuppressed failed renal transplant, end-stage renal disease. 3. Suspected acute aspiration. 4. Lactic acidosis. 5. Atrial fibrillation, on chronic anticoagulation. 6. Anoxic encephalopathy. RECOMMENDATION: We will continue broad antibiotic coverage, noting the [facility] [address] [place] [address] CONSULTATION Name: ILEANA ARDON Room #: 239-P [facility] IN [facility].#: [id number] Admission: 07/30/18 Attend Phys: Alexys Nova MD Discharge: Date of : 50 Report #: [id number] patient's allergy history. We will adjust her dosing for renal failure. We will obtain cultures of sputum, blood and urine. Serial hemoglobin. Full ICU support with vasopressors and sepsis protocol. Cardiovascular Medicine has been consulted and are assisting in her care. Will likely need some form of dialysis soon and Nephrology will be consulted. Overall, outlook here is very poor. I have discussed with patient's at the bedside. By: [id number] Rajan Marshall MD /nt
[~2018-07-30 06:09] MED LIST changes: -ARTIFICIAL TEAR15 M2 OPHTHALMIC; +COUMADIN 2 MG TA2 M1 PO; +DIPHENHYDRAMINE25 M3 PO; -JANTOVEN5 MG PO; +REFRESH CELLUVI1 APP OPHTHALMIC; +RENA-VITE TABL0.8 MG PO; +ROLAIDS CHEWAB1 EAC1 PO; +SM VITAMIN B C0.4 MG PO; -TOPROL XL100 MG PO; +TOPROL XL200 MG PO; -UNICOMPLEX M TA1 TA1 PO; +VALIUM2 MG PO; -VALIUM5 MG PO; +VITAMIN D1000 UNI1 PO; -VITAMIN D3400 UNIT PO
[2018-07-30 06:38] LABS: BE(vivo) -21.6 mmol/L (-2 to +3); HCO3 12.7 mmol/L (22.0-26.0); PCO2 84.3 mmHg (35.0-45.0); PO2 181.1 mmHg (80.0-100.0); pH 6.795 (7.360-7.450); sO2 97.5 % (92.0-98.0)
[2018-07-30 06:49] LABS: POC CA IONIZED 5.8 mg/dL (4.5-5.3); POC CREATININE 5.9 mg/dL (0.6-1.3); POC HEMOGLOBIN 8.5 g/dL (12.0-15.0); POC POTASSIUM 4.2 mmol/L (3.5-5.1)
[2018-07-30 06:52] LABS: HEMATOCRIT 27.5 % (37.0-47.0); HEMOGLOBIN 8.7 gm/dL (12.0-15.0); MCH 30.5 pg (26.0-34.0); MCHC 31.6 g/dL (28.0-37.0); MCV 96.5 fL (80.0-100.0); RBC 2.85 mil/uL (4.20-5.00); RDW 16.8 % (10.5-14.5); WBC 21.4 thou/uL (4.0-11.0)
[2018-07-30 07:12] LABS: CALCIUM 11.8 mg/dL (8.5-10.1); MAGNESIUM 2.6 mg/dL (1.8-2.4); PHOSPHORUS 9.4 mg/dL (2.5-4.9); TROPONIN-I 0.11 ng/mL (<0.06)
[2018-07-30 07:14] LABS: APTT 45.5 Seconds (24.5-32.8); FIBRINOGEN 294.4 mg/dL (210-360); INR 1.5; PROTIME 15.4 Seconds (9.3-11.4)
[2018-07-30 08:33] LABS: URINE BILIRUBIN NEGATIVE (Negative); URINE BLOOD 2+ (Negative); URINE CLARITY CLOUDY; URINE COLOR YELLOW; URINE GLUCOSE-RANDOM* NEGATIVE (Negative); URINE KETONES NEGATIVE (Negative); URINE NITRITE-REFLEX NEGATIVE (Negative); URINE PROTEIN (DIPSTICK) 2+ (Negative); URINE UROBILINOGEN 0.2 E.U./dl (0.2-1.0)
[2018-07-30 08:35] LABS: URINE LEUKOCYTES-REFLEX 3+ (Negative)
[2018-07-30 08:44] LABS: BACTERIA-REFLEX >30 Many /HPF (None Seen); CASTS None Seen /LPF (None Seen); CRYSTALS None Seen /LPF (None Seen); SQUAMOUS 0-3 Few /LPF (0-3); URINE RBC 3-10 Few /HPF (0-2); URINE WBC-REFLEX >25 Many /HPF (0-5)
[2018-07-30 10:32] LABS: BE(vivo) -12.9 mmol/L (-2 to +3); HCO3 15.3 mmol/L (22.0-26.0); PCO2 44.4 mmHg (35.0-45.0); PO2 108.4 mmHg (80.0-100.0); sO2 96.5 % (92.0-98.0)
[2018-07-30 10:33] LABS: pH 7.155 (7.360-7.450)
[2018-07-30] MEDS ORDERED: COUMADIN 1MG TAB1 M1 PO (10:42)
[2018-07-30] MEDS ORDERED: PROCRIT10000 UNIT SUBQ (10:43)
[2018-07-30] MEDS ORDERED: OCUFLOX5 ML OPHTHALMIC (10:43)
[2018-07-30] MEDS ORDERED: ANTIVERT25 MG PO (10:44)
[2018-07-30] MEDS ORDERED: HYDROXYZINE HCL25 M2 PO (10:44)
[2018-07-30] MEDS ORDERED: HECTOROL2 MCG/1 ML IV (10:51)
--- NOTE | 2018-07-30 11:14 | NUR ---
VASCULAR ACCESS CONSULTED FOR CENTRAL LINE PLACEMENT. PT HAS [facility]P DIALYSIS CATH ON LEFT AND POWER PORT ON RIGHT. LABS,MEDS,HISTORY,ORDER AND CONSENT VERIFIED. PT WAS PREPPED AND DRAPED FOR MAX BARRIER PRECAUTIONS. RIJ WIDELY PATENT WITH USG,1% LIDOCAINE GIVEN SQ. UNABLE TO PASS GUIDEWIRE MORE THAN FEW CM, GETTING GOOD BLOOD RETURN IN NEEDLE. ORDER PLACED FOR IR TO PLACE LINE SINCE UNSUCCESSFUL.
--- NOTE | 2018-07-30 12:41 | EKG ---
[address] [address] ELECTROCARDIOGRAM REPORT Name: ARDONILEANA N Room #: 239-P ADM IN M.R.#: [id number] Admission: 07/30/18 Attend Phys: Alexys Nova MD Discharge: Date of : 50 Report #: [id number] THIS REPORT FOR: //name// [facility] ED Test Date: 2018-07-30 Test Time: 06:31:54 Pat Name: ILEANA ARDON Department: Room: 239 Gender: F Line Rider: : 1950 Requested By: Frank Argueta Order Number: [id number] MD: Candelario Mcallister Measurements Intervals [place] Rate: 82 P: 88 ME: 125 QRS: 147 QRSD: 130 T: 235 QT: 356 QTc: 416 Interpretive Statements Sinus rhythm Probable left atrial enlargement Right bundle branch block Repol abnrm suggests ischemia, diffuse leads Compared to ECG 06/26/2018 16:33:31 Right bundle-branch block now present Early repolarization now present Possible ischemia now present Myocardial infarct finding no longer present Electronically Signed On 07-30-2018 12:41:02 HEEL SCOURER by Candelario Mcallister [email or web address] <ELECTRONICALLY SIGNED> By: Candelario Mcallister MD 07/30/18 1241 Candelario Mcallister MD /EPI
--- NOTE | 2018-07-30 16:16 | 2DMMODE ---
[facility] [place] [address] 2 D/M-MODE ECHOCARDIOGRAM Name: ILEANA ARDON Room #: 239-P [facility] IN ..#: [id number] Admission: 07/30/18 Attend Phys: Alexys Nova MD Discharge: Date of : 50 Date of Service: 07/30/18 1616 Report #: [id number] THIS REPORT FOR: //name// APPROVED REPORT Study performed: 07/30/2018 13:31:53 EXAM: Comprehensive 2D, Doppler, and color-flow Echocardiogram Patient Location: ICU Room #: 239 Status: routine BSA: 1.78 HR: 106 bpm BP: 99/53 mmHg Rhythm: Tachycardia Other Information Study Quality: Good/patient in ICU on vent Indications Status post cardiac arrest. Hx: Afib, HTN, HLP, ESRD. 2D Dimensions RVDd: 29.27 mm IVSd: 15.31 (7-11mm) LVOT Diam: 20.47 (18-24mm) LVDd: 40.11 mm PWd: 14.21 (7-11mm) Ascending Ao: 36.96 (22-36mm) LVDs: 32.64 (25-40mm) Aortic Root: 30.52 mm Volumes Left Atrial Volume (Systole) Single Plane 4CH: 46.92 mL Single Plane 2CH: 45.41 mL LA ESV Index: 29.00 mL/m2 Aortic Valve AoV Peak Arnel.: 1.14 m/s AO Peak Gr.: 5.20 mmHg LVOT Max P.92 mmHg LVOT Max V: 0.99 m/s ROLAN Vmax: 2.85 cm2 Mitral Valve MV Decel. Time: 132.39 ms MV E Max Arnel.: 1.02 m/s [facility] [place] [place] [address] 2 D/M-MODE ECHOCARDIOGRAM Name: ARDONILEANA N Room #: 239-[facility] IN ..#: [id number] Admission: 07/30/18 Attend Phys: Alexys Nova MD Discharge: Date of : 50 Date of Service: 07/30/18 1616 Report #: [id number] Pulmonary Valve PV Peak Arnel.: 0.73 m/s PV Peak Gr.: 2.14 mmHg Tricuspid Valve TR Peak Arnel.: 2.60 m/s RAP Estimate: 5.00 mmHg TR Peak Gr.: 27.12 mmHg PA Pressure: 32.00 mmHg Left Ventricle The left ventricle is normal size. There is global hypokinesis of the left ventricle. Moderate concentric left ventricular hypertrophy. Left ventricular systolic function is moderately decreased. LVEF 35-40%. This study is not technically sufficient to allow evaluation of the LV diastolic function. Right Ventricle The right ventricle is normal size. Right ventricle is mildly hypokinetic. Atria The left atrium size is normal. The right atrium size is normal. Aortic Valve Aortic valve is mildly calcified, trileaflet. Mild to moderate aortic regurgitation. There is no aortic valvular stenosis. Mitral Valve Moderate mitral annular calcification Mild mitral regurgitation. No evidence of mitral valve stenosis. Tricuspid Valve The tricuspid valve is normal in structure. Mild tricuspid regurgitation. Estimated PAP is 30-35mmHg. Pulmonic Valve The pulmonary valve is normal in structure. Trace pulmonic regurgitation. Great Vessels The aortic root is normal in size. Ascending aorta measures at the upper limits of normal. IVC is normal in size and collapses >50% with inspiration. Pericardium There is no pericardial effusion. Left [place] [address] 2 D/M-MODE ECHOCARDIOGRAM Name: JUNIOR ARDONNNYuliya Chavis Room #: 239-P [facility] IN [facility].#: [id number] Admission: 07/30/18 Attend Phys: Alexys Nova MD Discharge: Date of : 50 Date of Service: 07/30/18 1616 Report #: [id number] noted. <Conclusion> Left ventricular systolic function is moderately decreased. Moderate concentric left ventricular hypertrophy. There is global hypokinesis of the left ventricle. LVEF 35-40%. Aortic valve is mildly calcified, trileaflet. Mild to moderate aortic regurgitation, no stenosis. Moderate mitral annular calcification. Mild mitral regurgitation. Mild tricuspid regurgitation. Estimated pulmonary artery pressure of 30-35mmHg. There is no pericardial effusion. <ELECTRONICALLY SIGNED> By: Samir Johnson MD, FACC 07/30/18 161 15 15 Samir Johnson MD, FACC /INF
[2018-07-30 16:52] LABS: BE(vivo) -13.9 mmol/L (-2 to +3); HCO3 14.2 mmol/L (22.0-26.0); PCO2 41.8 mmHg (35.0-45.0); PO2 107.6 mmHg (80.0-100.0); pH 7.148 (7.360-7.450); sO2 96.4 % (92.0-98.0)
[2018-07-30 17:09] LABS: ALBUMIN 1.8 g/dL (3.4-5.0); CALCIUM 8.7 mg/dL (8.5-10.1); CREATININE 6.9 mg/dL (0.6-1.0); PHOSPHORUS 3.7 mg/dL (2.5-4.9); POTASSIUM 3.5 mmol/L (3.5-5.1)
[2018-07-30 17:58] LABS: HEMATOCRIT 31.4 % (37.0-47.0); HEMOGLOBIN 9.7 gm/dL (12.0-15.0); MCH 28.4 pg (26.0-34.0); MCV 91.8 fL (80.0-100.0); PLATELET COUNT 241 thou/uL (150-400); RBC 3.42 mil/uL (4.20-5.00); RDW 16.6 % (10.5-14.5); WBC 20.3 thou/uL (4.0-11.0)
[2018-07-30 18:25] LABS: ABSOLUTE NEUTROPHILS 19.3 thou/uL (1.4-8.2); METAMYELOCYTES 3 %; NUCLEATED RBCS 1 /100WBC
[2018-07-30 18:26] LABS: ANISOCYTOSIS 1+; LARGE PLATELETS OCCASIONAL; POLYCHROMASIA OCCASIONAL
[2018-07-30 19:22] LABS: BE(vivo) -10.4 mmol/L (-2 to +3); HCO3 16.9 mmol/L (22.0-26.0); PCO2 43.3 mmHg (35.0-45.0); sO2 97.3 % (92.0-98.0)
--- NOTE | 2018-07-30 21:16 | NUR ---
PATIENT ADMITTED FROM ED DEPARTMENT THIS MORNING AT 0900, POST-CODE. PATIENT DOES NOT FOLLOW COMMANDS, WITHDRAWS TO PAIN. SINUS RHYTHM ON LEGAL CONSULTANT. ON VENTILATOR 70% FIO2, SUCTIONING THIN SECRETIONS. NG TUBE TO LEFT NARE, LOW INTERMITTENT SUCTION. LOVING PATENT WITH SCANT AMOUNT OF OUTPUT. LEFT DIALYSIS SITE INTACT. STARTED HYPOTHERMIA PROTOCOL AT 0930, TEMPERATURE GOAL MET AT 1030, MONITORING EVERY HOUR. IV BLOOD PRESSURE MEDICATIONS TO OBTAIN MAP ABOVE 60, CVP MONITORED. ART LINE PRESENT AND INTACT. BLOOD SUGAR MONITORED Q1H. PLAN OF CARE DISCUSSED WITH , FAMILY, AND PHYSICIAN. UPDATED ON THE PLAN OF CARE. NO SIGNS OF ACUTE DISTRESS NOTED AT THIS TIME. WILL CONTINUE TO MONITOR.
[2018-07-31] VITALS (9 sets, daily range): BP systolic 96–151; BP diastolic 33–75
--- NOTE | 2018-07-31 01:00 | NUR ---
nonresponsive on vent. sr on monitor. on arrival of shift patient on levophed, dopamine and epi. currently only levophed and epi gtt ongoing. slowly titrating meds. on vent, fio2 titrated per rt. no urine output. hourl blood sugars. turns per tolerated. hypothermia protocol ongoing. at bedside will continue to monitor patient.
[2018-07-31 05:04] LABS: BE(vivo) -5.5 mmol/L (-2 to +3); HCO3 19.1 mmol/L (22.0-26.0); PO2 78.6 mmHg (80.0-100.0); pH 7.368 (7.360-7.450); sO2 95.4 % (92.0-98.0)
[2018-07-31 05:31] LABS: HEMOGLOBIN 9.8 gm/dL (12.0-15.0)
[2018-07-31 05:33] LABS: HEMATOCRIT 30.5 % (37.0-47.0); MCH 28.8 pg (26.0-34.0); MCHC 32.2 g/dL (28.0-37.0); MCV 89.6 fL (80.0-100.0); RBC 3.41 mil/uL (4.20-5.00); RDW 16.4 % (10.5-14.5); WBC 17.5 thou/uL (4.0-11.0)
[2018-07-31 05:42] LABS: ALBUMIN 1.6 g/dL (3.4-5.0); CREATININE 6.7 mg/dL (0.6-1.0); PHOSPHORUS 2.6 mg/dL (2.5-4.9); POTASSIUM 3.3 mmol/L (3.5-5.1)
--- NOTE | 2018-07-31 06:32 | NUR ---
UNRESPONSIVE ON VENT. TOLERATING VENT SETTINGS. ON HYPOTHERMIA PROTOCOL. CURRENTLY ON LEVOPHED AT 15 MCGS FOR BP SUPPORT. OFF EPI GTT AND DOPAMIN GTT. NO URINE OUPUT. MINIMAL OUTPUT FROM NG. NO APPARENT PAIN. FREQUENT TURNS PER PT TOLERANCE RIGHT ARTLINE IN PLACE. CVP MONITORING. LEFT DIALYSIS CATHETER DRESSING CHANGED. AT BEDSIDE DURING THE NIGHT. WILL CONTINUE TO MONITOR.
[2018-07-31 06:33] LABS: ABSOLUTE NEUTROPHILS 15.2 thou/uL (1.4-8.2); METAMYELOCYTES 1 %
[2018-07-31 06:35] LABS: LARGE PLATELETS FEW; PLATELET COUNT 86 thou/uL (150-400); PLATELET ESTIMATE DECREASED; POLYCHROMASIA 1+
--- NOTE | 2018-07-31 08:25 | EKG ---
[address] [facility] [place] [address] ELECTROCARDIOGRAM REPORT Name: ARDONILEANA Room #: 239-P ADM IN M.R.#: [id number] Admission: 07/30/18 Attend Phys: Alexys Nova MD Discharge: Date of : 50 Report #: [id number] THIS REPORT FOR: //name// [facility] Test Date: 2018-07-31 Test Time: 07:01:40 Pat Name: ILEANA ARDON Department: Room: 239 P Gender: F Industrial Truck Operator: ISABELLA : 1950 Requested By: Samir Johnson Order Number: [id number] MD: Samir Johnson Measurements Intervals Bitely Rate: 77 P: WI: QRS: 49 QRSD: 95 T: 48 QT: 378 QTc: 428 Interpretive Statements Atrial fibrillation Otherwise no significant abnormality Compared to ECG 07/30/2018 06:31:54 Sinus rhythm no longer present Right bundle-branch block no longer present Diffuse ST and T-wave abnormality no longer present Electronically Signed On 07-31-2018 8:25:08 [employer] by Samir Johnson [email or web address] <ELECTRONICALLY SIGNED> By: Samir Johnson MD, [facility] 07/31/18 0825 0701 Samir Johnson MD, [facility] /EPI
--- NOTE | 2018-07-31 08:29 | HC ---
[facility] [place] [address] CONSULTATION Name: ILEANA ARDON Palmira Room #: 239-P [facility] IN ..#: [id number] Admission: 07/30/18 Attend Phys: Alexys Nova MD Discharge: Date of : 50 Report #: [id number] THIS REPORT FOR: //name// CC: Alexys Sunshine REASON FOR CONSULTATION: Status post arrest. HISTORY OF PRESENT ILLNESS: The patient is a 68-year-old woman with multiple medical problems including a failed kidney transplant; hyperparathyroidism; paroxysmal atrial fibrillation; end-stage renal disease, on hemodialysis and antiphospholipid antibody syndrome; who now presents with an out of hospital cardiac arrest. This history comes from the Emergency Room physician and the patient's . Around 3:00 a.m., she awakened her and asked him to take her blood pressure, which is not too uncommon for her. He reports that she has had frequent episodes of congestive heart failure in association with severe hypertension. Her blood pressure at that time was quite high. She went back to sleep and around 5:00 a.m., she got up to use the bathroom. Shortly thereafter, she slumped over. Paramedics were summoned. He gave CPR at home as instructed by 911. The Emergency Room records suggest that she had been down about 10 minutes prior to paramedics arrival, she received another 25-35 minutes of CPR with severance of epinephrine and intubation in the field. She is dialyzed 4 days a week for fluid retention problems. No prior history of myocardial infarction. She does have a history of paroxysmal atrial fibrillation for which she takes metoprolol 200 mg daily. She has also been maintained on warfarin for both the atrial fibrillation and antiphospholipid antibody syndrome. MEDICATIONS: Include hydralazine for hypertension, omeprazole 20 mg twice daily, amlodipine 10 mg twice daily, warfarin, prednisone 10 mg daily, tacrolimus 0.5 mg twice daily, Imdur 30 mg daily and Toprol-XL 200 mg daily. ALLERGIES: She is allergic to IODINE, PENICILLIN, SULFA, CIPRO, CODEINE and IRON. PAST MEDICAL HISTORY: Her past history and medical records have been reviewed and include a history of hyperparathyroidism, end-stage renal disease, failed kidney transplant, paroxysmal atrial fibrillation, left lower extremity DVT, stickler syndrome and ulnar neuropathy. SOCIAL HISTORY: She is nonsmoker and nondrinker. She lives with her . FAMILY HISTORY: Unremarkable for premature coronary artery disease. REVIEW OF SYSTEMS: All systems negative except as that noted above. PHYSICAL EXAMINATION: GENERAL: Reveals a comatose woman who is critically ill. She is on aggressive [address] [address] CONSULTATION Name: AGGIE ARDONYuliya Chavis Room #: 239-P [facility] IN ..#: [id number] Admission: 07/30/18 Attend Phys: Alexys Nova MD Discharge: Date of : 50 Report #: [id number] doses of epinephrine. An NG is placed with large amounts of coffee-ground appearing emesis or aspirates at least 400-500 mL so far. VITAL SIGNS: Blood pressure is 90/82, heart rate of 114, temperature is 95.8 degrees, 5 feet 3 inches tall and 165 pounds. HEENT: There are neither xanthelasma, subcutaneous xanthomata, oral mucosal or digital cyanosis or kyphoscoliosis present. CHEST: Reveals coarse but equal breath sounds. CARDIAC: Regular rate and rhythm with normal S1 and S2. Jugular venous pressure is elevated. ABDOMEN: Soft and nontender. EXTREMITIES: Without cyanosis or clubbing. Radial pulses are 2+. NEUROLOGICAL: She is comatose. LABORATORY DATA: Sodium 132, potassium 3.9 and creatinine 6.8. Troponin 0.11. Pro-BNP greater than 70,000. White count 21,000, hemoglobin 8.7 and platelet count 242. RADIOLOGICAL DATA: Chest x-ray, perihilar infiltrate suggesting edema. EKGs, sinus rhythm with significant diffuse ST-segment depression and a 0.[address]-elevation in V1. IMPRESSION: 1. Status post out of hospital cardiac arrest with prolonged cardiopulmonary resuscitation. 2. Hypoxemic respiratory failure. 3. End-stage renal disease; failed kidney transplant, congestive heart failure. 4. Paroxysmal atrial fibrillation. 5. Antiphospholipid antibody syndrome. 6. Probable upper gastrointestinal bleed. 7. Severe anemia. 8. Probable anoxic encephalopathy. 9. History of hypertension. 10. Dyslipidemia. 11. Iodine allergy. RECOMMENDATIONS: 1. Her ischemic EKG changes occurred in the setting of severe anemia, profound acidosis and hypoxemia. I do not think this is a primary ischemic myocardial event precipitating this sequence of events but rather probably heart failure, possible underlying or superimposed infection. She has multiple contraindications to emergent coronary angiography as detailed above. I would recommend repeating the EKG with correction of her multiple metabolic derangements. An echocardiogram was ordered. 2. Pulmonary, Nephrology and Neurology consultations. 3. I have discussed multiple issues with Dr. Argueta and her . I do not believe this is a survivable event for the patient. This was relayed to her [facility] [address] [place] [address] CONSULTATION Name: ILEANA ARDON Room #: 239-P [facility] IN [facility].#: [id number] Admission: 07/30/18 Attend Phys: Alexys Nova MD Discharge: Date of : 50 Report #: [id number] . Currently full supportive measures are underway. CRITICAL CARE TIME: Seventy-five minutes of critical care time. <ELECTRONICALLY SIGNED> By: Samir Johnson MD, FACC 07/31/18 0829 0823 0900 Samir Johnson MD, FAC /nt
--- NOTE | 2018-07-31 17:32 | HC ---
[facility] [place] [address] CONSULTATION Name: ILEANA ARDON Palmira Room #: 239-P [facility] IN .R.#: [id number] Admission: 07/30/18 Attend Phys: Alexys Nova MD Discharge: Date of : 50 Report #: [id number] THIS REPORT FOR: //name// CC: Alexys Sunshine DATE OF SERVICE: 07/30/2018 REFERRING PHYSICIAN: Dr. Nova. REASON FOR REFERRAL: Cardiac arrest. HISTORY OF PRESENT ILLNESS: The patient is a 68-year-old white female who was brought to the Emergency Room following an [id number] cardiac arrest. A pulmonary consultation was requested. According to the family, the patient was doing fairly well until this morning when she had complained of not feeling well with a mild cough. She has complained of chest discomfort. She went to the bathroom where she subsequently lost consciousness. CPR was given by the spouse. When EMS arrived, patient's downtime prior to EMS arrival was about 10 minutes. She was found to be in PEA. Epinephrine was given x 4. The patient was brought to the Emergency Room. She is currently intubated, currently on hypothermia protocol. She is hypotensive. PAST MEDICAL HISTORY: Notable for end-stage renal disease, undergoing hemodialysis, hypertension, atrial fibrillation, parathyroidism, history of lung nodules, on immunosuppression, osteoporosis, degenerative joint disease involving the spine, macular atrophy, history of antiphospholipid antibody with history of left lower extremity DVT, Stickler syndrome, ulnar neuropathy, history of rhinitis pigmentosa, past history of renal transplantation. PAST SURGICAL HISTORY: As mentioned above. ALLERGIES: IODINE, PENICILLIN, SULFA, WHICH ALL CAUSES PRURITUS. SHE IS ALLERGIC TO CIPROFLOXACIN, WHICH CAUSES CHEST TIGHTNESS, HEADACHES. CODEINE CAUSES NAUSEA, VOMITING. IRON SUCROSE CAUSES DIARRHEA, DIZZINESS. SHE IS ALSO ALLERGIC TO SHELLFISH CAUSING SEVERE PRURITUS. MEDICATIONS: Extensive and is reviewed in the MAR. Among those, she is on tacrolimus, Lasix, Dilaudid, prednisone and Valium among others. FAMILY HISTORY: Noncontributory. SOCIAL HISTORY: No tobacco or alcohol use. [facility] [address] [place] [address] CONSULTATION Name: ILEANA ARDON Palmira Room #: 239-P [facility]#: [id number] Admission: 07/30/18 Attend Phys: Alexys Nova MD Discharge: Date of : 50 Report #: [id number] She is . REVIEW OF SYSTEMS: Deferred as the patient is intubated. PHYSICAL EXAMINATION: GENERAL: She is obtunded, unresponsive. VITAL SIGNS: Temperature on admission is 96 degrees Fahrenheit, pulse is 100, respiratory rate is 20, blood pressure is 74/30 mmHg. HEENT: Normocephalic, atraumatic. She is orally intubated. NECK: Supple, without lymphadenopathy or thyromegaly. CHEST: Breath sounds are coarse bilaterally. No obvious wheezes. CARDIOVASCULAR: Heart sounds are distant. No obvious murmurs or gallop. Pulse decreased bilaterally were less than 1/4+. BREASTS: Exam is deferred. ABDOMEN: Soft, no masses. GENITOURINARY: Deferred. RECTAL: Deferred. EXTREMITIES: No cyanosis, clubbing, edema. NEUROLOGIC: Deferred. LABORATORY DATA: Portable chest x-ray shows increased bilateral interstitial edema, ET tube approximately 2.5 cm above the susy. BNP greater than 70,000. Procalcitonin level is 1.88. EKG shows right bundle-branch block. Echocardiogram shows EF of 35-40%, moderately depressed LV function, mild mitral regurgitation, pulmonary artery pressure around 35. Sodium 135, potassium 3.5, chloride 95, CO2 is 17, BUN is 56, creatinine 6.9. WBC 21,400, hemoglobin 8.7. Arterial blood gas on admission revealed pH 7.69, pCO2 84, pO2 181. Follow up arterial blood gas revealed pH 7.14, pCO2 of 41, pO2 of 107 on FiO2 of 70%. IMPRESSION: 1. Nzd-qw-heudcecv cardiac arrest, initial rhythm was felt to be pulseless electrical activity. Etiology, suspect cardiac given history of cardiomyopathy. 2. Bilateral interstitial edema. Suspect acute on chronic systolic heart failure. Cannot rule out aspiration pneumonia. 3. Acute hypercapnic hypoxic respiratory failure due to above events. 4. Metabolic acidosis due to above. 5. Profound hypotension. Suspect cardiac, possible severe sepsis. 6. End-stage renal disease, status post kidney transplantation, hemodialysis in the past. 7. Antiphospholipid antibody syndrome with history of deep vein thrombosis, chronic anticoagulation. 8. History of lung nodules. 9. Immunosuppression for past history of kidney transplantation. 10. History of atrial fibrillation. 11. Hypertension. [facility] [address] [place] [address] CONSULTATION Name: ILEANA ARDON Palmira Room #: 239-P [facility] IN M.R.#: [id number] Admission: 07/30/18 Attend Phys: Alexys Nova MD Discharge: Date of : 50 Report #: [id number] 12. Parathyroid disease. 13. Encephalopathy, probable hypoxic brain injury. RECOMMENDATION: Continue hypothermia protocol as you are, vasopressors to keep systolic greater than 90, mean arterial pressure greater than 60. Correct acid base disorder. Continue mechanical ventilation. Agree with broad-spectrum antibiotics, DVT and GI prophylaxis will be addressed. Given cardiac arrest, the patient will need to be evaluated for probable hypoxic brain injury. Critical care one hour. <ELECTRONICALLY SIGNED> By: Clifford Cornejo MD 07/31/18 1732 1740 0711 Clifford Cornejo MD /nt
--- NOTE | 2018-07-31 21:00 | NUR ---
RECEIVED REPORT FROM DAY SHIFT RN AT 1900. PT'S BP LOW AT THE TIME, ON LEVO GTT. PT'S HEART RHYTHM HAD WIDE QRS COMPLEX. PT ASSESSED IMMEDIATELY AFTER REPORT; PT NONRESPONSIVE, PULSES WEAK. LEVO GTT INCREASED TO MAX WITHIN 20 MIN, DOPAMINE GTT STARTED AGAIN. QRS COMPLEXES BEGAN TO WIDEN FURTHER. PT LOST PULSE AT APPROX 1945 AND CPR STARTED PROMPTLY. ACLS FOLLOWED, AND PT NEVER REGAINED A PULSE. CODE ENDED AND PT PRONOUNCED AT 200707/31/18. IN ROOM DURING CODE AND AT BEDSIDE FOLLOWING. SUPPORT GIVEN. MTN CALLED AT 2027 AND RETURNED CALL AT 2053. ALL PHYSICIANS SEEING PT NOTIFIED THAT PT . FAMILY AT BEDSIDE AT THIS TIME.
--- NOTE | 2018-08-01 09:22 | HC ---
[facility] [place] [address] CONSULTATION Name: ILEANA ARDON Palmira Room #: 239-P [facility]..#: [id number] Admission: 07/30/18 Attend Phys: Alexys Nova MD Discharge: 07/31/18 Date of : 50 Report #: [id number] THIS REPORT FOR: //name// CC: Alexys Sunshine DATE OF SERVICE: 07/30/2018 NEPHROLOGY CONSULTATION: ATTENDING PHYSICIAN: Dr. Nova. REASON FOR CONSULTATION: End-stage renal disease, status post cardiorespiratory arrest. HISTORY OF PRESENT ILLNESS: The patient is known to our service from previous admissions at this hospital. She has end-stage renal disease secondary to SLE, was on dialysis for a couple of years, had a kidney transplant in 2014, which failed sometime last year, was admitted to this hospital in December of last year, already back on dialysis and now is admitted after a home cardiorespiratory arrest and prolonged [id number] resuscitation including CPR by a family member. PAST MEDICAL HISTORY: SLE, antiphospholipid syndrome, on chronic anticoagulation, failed renal transplant, history of previous a-fib, renal osteodystrophy, apparently very poor compliance with her diet and fluid regimen according to the charts requiring 4 times weekly dialysis to try and manage her blood pressure and her volume status. HOME MEDICATIONS: Include as listed Rolaids p.r.n., vitamin D 2000 units daily, Valium p.r.n. q.i.d. 2 mg, Hectorol 1 mcg with dialysis 3 times a week, Procrit, oral iron, furosemide 80 mg daily, hydralazine 25 mg 3 times a day, meclizine, loperamide p.r.n., melatonin 5 mg daily, Toprol-XL 200 mg daily, ear drops, omeprazole 20 mg daily, prednisone 10 mg daily, trazodone 25 mg daily, Effexor 112.5 mg daily and warfarin. FAMILY HISTORY: Taken from old charts, unremarkable. SOCIAL HISTORY: Apparently, not a cigarette smoker. REVIEW OF SYSTEMS: We will review with her . From what I can get from the chart, she apparently was in her usual state of health until she had a collapse at home during the night. PHYSICAL EXAMINATION: GENERAL: Unresponsive on the ventilator without sedation, on maximal doses of 3 [facility] [address] [place] [address] CONSULTATION Name: ILEANA ARDON Palmira Room #: 239-P [facility] M.R.#: [id number] Admission: 07/30/18 Attend Phys: Alexys Nova MD Discharge: 07/31/18 Date of : 50 Report #: [id number] pressors with a blood pressure of 80/50. SKIN: Somewhat cool. SKELETAL: Shows her to be well developed, well nourished. HEENT: Extraocular movements are not tested. Pupils are not reactive. Sclerae are quite injected. Endotracheal tube in place. CHEST: Shows diminished breath sounds. HEART: Distant. ABDOMEN: Has a cooling apparatus over it. EXTREMITIES: Show no edema. Pulses are diminished. Feet are cool. LABORATORY DATA: The hemoglobin is 8.7, white count 21.4, platelets 242. INR is 1.5. Sodium 136, potassium 4.2, chloride 100, bicarbonate 18, BUN 52, creatinine 5.9. ASSESSMENT: 1. End-stage renal disease, status post arrest. Volume status appears reasonably good. Currently, arterial blood gas shows her to be oxygenating reasonably well on 70%, pH a bit low at 7.15. She has been given some IV bicarbonate since then. Currently, would be problematic to try any sort of renal replacement therapy given her profound hypotension. I will give her some bicarbonate to see if that might help in terms of stabilizing her, getting her on less of the pressors and may possibly be able to do CRRT if we can get her a little more stabilized. Fortunately, her potassium is not an issue at the current time. 2. Systemic lupus erythematosus, on chronic steroids. 3. Antiphospholipid syndrome, on chronic anticoagulation. 4. Difficult hypertension. 5. Difficult fluid volume management secondary to poor compliance. 6. Failed renal transplant, may or may not have been on tacrolimus at home. It is not on her current list. <ELECTRONICALLY SIGNED> By: Norbert Hsu MD 08/01/18 0922 [id number] Norbert Hsu MD /nt
== END 2018-07-31 20:08 | DRG 208 ==
LOC: ER 06:09 → EROBS 07:01 → ICU 07:01
PROVIDERS: Emergency Medicine; Internal Medicine Nephrology; Internal Medicine Pulmonary Disease; Specialist; ADMIT Hospitalist
DX: J96.01 Acute respiratory failure with hypoxia (principal); N18.6 End stage renal disease; I50.23 Acute on chronic systolic (congestive) heart failure; K92.2 Gastrointestinal hemorrhage, unspecified; G93.1 Anoxic brain damage, not elsewhere classified; Q89.8 Other specified congenital malformations; D68.61 Antiphospholipid syndrome; I42.9 Cardiomyopathy, unspecified; I13.2 Hypertensive heart and chronic kidney disease with heart failure and with stage 5 chronic kidney disease, or end stage renal disease; J96.02 Acute respiratory failure with hypercapnia; I46.9 Cardiac arrest, cause unspecified; E78.5 Hyperlipidemia, unspecified; E78.00 Pure hypercholesterolemia, unspecified; M81.0 Age-related osteoporosis without current pathological fracture; M47.9 Spondylosis, unspecified; I48.0 Paroxysmal atrial fibrillation; E21.3 Hyperparathyroidism, unspecified; G56.20 Lesion of ulnar nerve, unspecified upper limb; D64.9 Anemia, unspecified; M32.9 Systemic lupus erythematosus, unspecified; I95.9 Hypotension, unspecified; Z86.718 Personal history of other venous thrombosis and embolism; Z88.0 Allergy status to penicillin; Z88.8 Allergy status to other drugs, medicaments and biological substances; Z88.6 Allergy status to analgesic agent; Z88.1 Allergy status to other antibiotic agents; Z91.041 Radiographic dye allergy status; Z79.01 Long term (current) use of anticoagulants; Z91.013 Allergy to seafood
CPT/HCPCS: 10078